=== PATIENT | female | born 1995 ===

== ENCOUNTER 2017-01-22 12:56 | Emergency (ER) | payer OTHER ==
[2017-01-22 13:42] VITALS: BP 115/63; PULSE 76; RESP 16; TEMP 98; O2SAT 99
--- NOTE | 2017-01-22 15:28 | ED PDOC ---
HPI: Abdomen Time Seen by Provider: 01/22/17 14:04 Chief Complaint (Nursing): Abdominal Pain Chief Complaint (Provider): Epigastric abdominal pain, nausea and vomiting x 4 days History Per: Patient History/Exam Limitations: no limitations Onset/Duration Of Symptoms: Days Outside of [place] travel?: No Current Symptoms Are (Timing): Still Present Severity: Moderate Pain Scale Rating Of: 6 Location Of Pain/Discomfort: Epigastric Quality Of Discomfort: Burning Associated Symptoms: Nausea, Vomiting, Loss Of Appetite. denies: Fever, Chills , Diarrhea, Back Pain, Chest Pain, Constipation, Urinary Symptoms Exacerbating Factors: Cough (Pt states she attempted to eat rice and beans last night ) Alleviating Factors: None Additional Complaint(s): Pt reports pain epigastric and states it radiates to the RUQ. Denies similar in the past. Past Medical History Reviewed: Historical Data, Nursing Documentation, Vital Signs Vital Signs: Last Vital Signs Temp 98.0 F 01/22/17 13:39 Pulse 76 01/22/17 13:39 Resp 16 01/22/17 13:39 BP 115/63 01/22/17 13:39 Pulse Ox 99 01/22/17 15:30 - Medical History PMH: No Chronic Diseases - Surgical History Surgical History: No Surg Hx - Family History Family History: States: Unknown Family Hx - Living Arrangements Living Arrangements: With Family - Social History Current smoker - smoking cessation education provided: No Alcohol: None Drugs: Denies - Immunization History Hx Tetanus Toxoid Vaccination: No Hx Influenza Vaccination: No Hx Pneumococcal Vaccination: No - Home Medications Home Medications: Ambulatory Orders Medication Instructions Recorded Ciprofloxacin [Cipro] 1 tab PO BID #14 tab 02/16/16 metroNIDAZOLE 0.75% [Metrogel 1 applic VAG ONCE #7 tube 02/16/16 Cream] Ondansetron [Zofran] 4 mg PO Q6H PRN #10 tab 10/12/16 Famotidine [Pepcid] 20 mg PO BID #28 tab 01/22/17 Ondansetron ODT [Zofran ODT] 4 mg PO QID #20 odt 01/22/17 - Allergies Allergies/Adverse Reactions: Allergies Allergy/AdvReac Type Severity Reaction Status Date / Time No Known Allergies Allergy Verified 10/12/16 16:13 Review of Systems ROS Statement: Except As Marked, All Systems Reviewed And Found Negative Gastrointestinal: Positive for: Nausea, Vomiting, Abdominal Pain. Negative for : Diarrhea Genitourinary Female: Negative for: Dysuria Physical Exam - Reviewed Nursing Documentation Reviewed: Yes Vital Signs Reviewed: Yes - Physical Exam Appears: Positive for: Well, Non-toxic, No Acute Distress Head Exam: Positive for: ATRAUMATIC, NORMAL INSPECTION, NORMOCEPHALIC Skin: Positive for: Normal Color, Warm, DRY Eye Exam: Positive for: Normal appearance ENT: Positive for: Normal ENT Inspection Neck: Positive for: Normal, Painless ROM Cardiovascular/Chest: Positive for: Regular Rate, Rhythm Respiratory: Positive for: CNT, Normal Breath Sounds Gastrointestinal/Abdominal: Positive for: Bowel Sounds, Soft, Tenderness ( Epigastric and RUQ, (-) McMurphy's ) Back: Positive for: Normal Inspection Extremity: Positive for: Normal ROM Neurologic/Psych: Positive for: Alert, Oriented - Laboratory Results Result Diagrams: 01/22/17 16:00 01/22/17 16:00 - ECG O2 Sat by Pulse Oximetry: 99 Pulse Ox Interpretation: Normal Medical Decision Making Medical Decision Making: Labs - Normal US - Normal 1812 - Pt reports feeling better on re-evaluation. Disposition - Clinical Impression Clinical Impression: Gastritis - Patient ED Disposition Is Patient to be Admitted: No Counseled Patient/Family Regarding: Diagnosis, Need For Followup, Rx Given - Disposition Referrals: Former[facility] [Outside] Disposition: Routine/Home Disposition Time: 18:10 Condition: GOOD Prescriptions: Famotidine [Pepcid] 20 mg PO BID #28 tab Ondansetron ODT [Zofran ODT] 4 mg PO QID #20 odt Instructions: Gastritis (ED) Print Language: ITALIAN
--- NOTE | 2017-01-22 16:00 | US ---
HISTORY: epigastric, ruq pain COMPARISON: None. TECHNIQUE: Sonographic evaluation of the right upper quadrant of the abdomen. FINDINGS: LIVER: Measures approximately 14.1 cm cm in length. Smooth contour and normal echogenicity of the liver parenchyma. No mass. No intrahepatic bile duct dilatation. GALLBLADDER: No intraluminal gallbladder calculi. The sonographic Jorgensen's sign COMMON BILE DUCT: Measures 3 mm. No stones. No dilatation. PANCREAS: Unremarkable as visualized. No mass. No ductal dilatation. RIGHT KIDNEY: Measures 9.2 x 2.9 x 3.9 cm in length. Normal echogenicity. No calculus, mass, or hydronephrosis. AORTA: No aneurysmal dilatation. IVC: Unremarkable. OTHER FINDINGS: None . IMPRESSION: Unremarkable right upper quadrant ultrasound.
[2017-01-22 16:20] LABS: BASO # 0.1 K/uL (0.0-0.2); BASO % 1.1 % (0.0-2.0); EOS # 0.3 K/uL (0.0-0.7); EOS % 3.7 % (0.0-4.0); HEMATOCRIT 39.7 % (34.0-47.0); LYMPH # 3.2 K/uL (1.0-4.3); LYMPH % 37.2 % (20.0-40.0); MEAN CELL VOLUME 83.8 fl (81.0-99.0); MEAN CORPUSCULAR HEMOGLOBIN 27.2 pg (27.0-31.0); MEAN CORPUSCULAR HGB CONC 32.5 g/dL (33.0-37.0); MEAN PLATELET VOLUME 9.4 fl (7.2-11.7); MONO # 0.6 K/uL (0.0-0.8); NEUT # 4.4 K/uL (1.8-7.0); NRBC % 0.1 % (0.0-0.0); RED CELL DISTRIBUTION WIDTH 12.9 % (11.5-14.5); WHITE BLOOD COUNT 8.7 K/uL (4.8-10.8)
[2017-01-22 16:38] LABS: ALB/GLOB RATIO 1.4 (1.0-2.1); ALKALINE PHOSPHATASE 85 U/L (38-126); ALT/SGPT 32 U/L (9-52); AST/SGOT 30 U/L (14-36); BILIRUBIN,TOTAL 0.3 mg/dl (0.2-1.3); BLOOD UREA NITROGEN 14 mg/dl (7-17); CALCIUM 9.3 mg/dL (8.4-10.2); CARBON DIOXIDE 24 mmol/L (22-30); CHLORIDE 104 mmol/L (98-107); GFR AFRICAN-AMERICAN > 60; GLUCOSE,RANDOM 79 mg/dL (65-105); LIPASE 92 U/L (23-300); SODIUM 139 mmol/l (132-148); TOTAL PROTEIN 7.7 G/DL (6.3-8.2)
== END 2017-01-22 18:40 | disposition home or self-care (01) ==
LOC: H.ER 12:56
DX: K29.70 Gastritis, unspecified, without bleeding (principal); R11.2 Nausea with vomiting, unspecified

== ENCOUNTER 2017-02-19 11:42 | Emergency (ER) | payer OTHER ==
[2017-02-19 11:51] VITALS: BP 117/72; PULSE 76; RESP 18; TEMP 98.4; O2SAT 99
--- NOTE | 2017-02-19 12:26 | ED PDOC ---
HPI: Skin/Bite Injury Time Seen by Provider: 02/19/17 12:24 Chief Complaint (Nursing): Abnormal Skin Integrity Chief Complaint (Provider): RASH History Per: Patient (21 Y/O FEMALE WITH RASH NOTED GENERALIZED TODAY AM. NO NEW FOODS/DETERGENT/LOTION/MEDICATION. UNSURE OF TRIGGER. ) Past Medical History Reviewed: Historical Data, Nursing Documentation, Vital Signs Vital Signs: Last Vital Signs Temp 98.4 F 02/19/17 11:48 Pulse 76 02/19/17 11:48 Resp 18 02/19/17 11:48 BP 117/72 02/19/17 11:48 Pulse Ox 99 02/19/17 11:48 - Medical History PMH: Asthma - Family History Family History: States: Unknown Family Hx - Immunization History Hx Tetanus Toxoid Vaccination: No Hx Influenza Vaccination: No Hx Pneumococcal Vaccination: No - Home Medications Home Medications: Ambulatory Orders Medication Instructions Recorded Ciprofloxacin [Cipro] 1 tab PO BID #14 tab 02/16/16 metroNIDAZOLE 0.75% [Metrogel 1 applic VAG ONCE #7 tube 02/16/16 Cream] Ondansetron [Zofran] 4 mg PO Q6H PRN #10 tab 10/12/16 Famotidine [Pepcid] 20 mg PO BID #28 tab 01/22/17 Ondansetron ODT [Zofran ODT] 4 mg PO QID #20 odt 01/22/17 DiphenhydrAMINE [Benadryl] 50 mg PO Q6 PRN #24 cap 02/19/17 Epinephrine [Epipen] 0.3 mg SC ONCE PRN #2 auto.injct 02/19/17 Famotidine [Pepcid] 20 mg PO BID #10 tab 02/19/17 predniSONE [predniSONE Tab] 3 tab PO DAILY #12 tab 02/19/17 - Allergies Allergies/Adverse Reactions: Allergies Allergy/AdvReac Type Severity Reaction Status Date / Time pumpkin Allergy RASH Verified 02/19/17 11:48 Review of Systems ROS Statement: Except As Marked, All Systems Reviewed And Found Negative Physical Exam - Reviewed Nursing Documentation Reviewed: Yes Vital Signs Reviewed: Yes - Physical Exam Appears: Positive for: Well, Non-toxic, No Acute Distress Head Exam: Positive for: ATRAUMATIC, NORMAL INSPECTION, NORMOCEPHALIC Skin: Positive for: Normal Color, Warm, Rash (URTICARIA NOTED ALONG TRUNK AND ARMS) Eye Exam: Positive for: EOMI, Normal appearance, PERRL ENT: Positive for: Normal ENT Inspection Neck: Positive for: Normal, Painless ROM Cardiovascular/Chest: Positive for: Regular Rate, Rhythm Respiratory: Positive for: CNT, Normal Breath Sounds Gastrointestinal/Abdominal: Positive for: Normal Exam, Bowel Sounds, Soft Back: Positive for: Normal Inspection Extremity: Positive for: Normal ROM Neurologic/Psych: Positive for: Alert, Oriented - ECG O2 Sat by Pulse Oximetry: 99 - Progress ED Course And Treament: pREDNISONE 60 MG X 1 DOSE Disposition - Clinical Impression Clinical Impression: Urticaria - Patient ED Disposition Is Patient to be Admitted: No - Disposition Referrals: Former[facility] [Outside] Disposition: Routine/Home Disposition Time: 12:26 Condition: FAIR Prescriptions: DiphenhydrAMINE [Benadryl] 50 mg PO Q6 PRN #24 cap PRN Reason: Itching / Pruritus Epinephrine [Epipen] 0.3 mg SC ONCE PRN #2 auto.injct PRN Reason: Anaphylaxis Famotidine [Pepcid] 20 mg PO BID #10 tab predniSONE [predniSONE Tab] 3 tab PO DAILY #12 tab Instructions: Urticaria (ED) Print Language: IRISH
== END 2017-02-19 13:11 | disposition home or self-care (01) ==
LOC: H.ER 11:42
DX: L50.9 Urticaria, unspecified (principal)

== ENCOUNTER 2017-05-29 13:26 | Emergency (ER) | payer OTHER ==
[2017-05-29 13:40] VITALS: BP 99/66; PULSE 80; RESP 16; TEMP 98.7; O2SAT 99
--- NOTE | 2017-05-29 14:14 | ED PDOC ---
Lower Extremity Pain/Injury Time Seen by Provider: 05/29/17 13:39 Chief Complaint (Nursing): Lower Extremity Problem/Injury Chief Complaint (Provider): Lower Extremity Problem/Injury History Per: Patient History/Exam Limitations: no limitations Onset/Duration Of Symptoms: Days (x4) Current Symptoms Are (Timing): Still Present Additional Complaint(s): Rl Gibson is a 21 year old female with previous medical history of asthma , who presents to the emergency department with a complaint of left foot pain associated with itchiness ongoing for 4 days. Mother applied unknown, red cream to patient's left foot prior to arrival. Patient also stated that she wears sneakers for work and is on her feet most of the time. PMD: none provided Past Medical History Reviewed: Historical Data, Nursing Documentation, Vital Signs Vital Signs: Last Vital Signs Temp 98.7 F 05/29/17 13:37 Pulse 80 05/29/17 13:37 Resp 16 05/29/17 13:37 BP 99/66 L 05/29/17 13:37 Pulse Ox 99 05/29/17 13:37 - Medical History PMH: Asthma - Surgical History Surgical History: No Surg Hx - Family History Family History: States: Unknown Family Hx - Social History Current smoker - smoking cessation education provided: No Ex-Smoker (has not smoked in the last 12 months): No Alcohol: None Drugs: Denies - Immunization History Hx Tetanus Toxoid Vaccination: No Hx Influenza Vaccination: No Hx Pneumococcal Vaccination: No - Home Medications Home Medications: Ambulatory Orders Medication Instructions Recorded Ciprofloxacin [Cipro] 1 tab PO BID #14 tab 02/16/16 metroNIDAZOLE 0.75% [Metrogel 1 applic VAG ONCE #7 tube 02/16/16 Cream] Ondansetron [Zofran] 4 mg PO Q6H PRN #10 tab 10/12/16 Famotidine [Pepcid] 20 mg PO BID #28 tab 01/22/17 Ondansetron ODT [Zofran ODT] 4 mg PO QID #20 odt 01/22/17 DiphenhydrAMINE [Benadryl] 50 mg PO Q6 PRN #24 cap 02/19/17 Epinephrine [Epipen] 0.3 mg SC ONCE PRN #2 auto.injct 02/19/17 Famotidine [Pepcid] 20 mg PO BID #10 tab 02/19/17 predniSONE [predniSONE Tab] 3 tab PO DAILY #12 tab 02/19/17 Miconazole 1 gm MC BID 14 Days #1 powder 05/29/17 - Allergies Allergies/Adverse Reactions: Allergies Allergy/AdvReac Type Severity Reaction Status Date / Time pumpkin Allergy RASH Verified 02/19/17 11:48 Review of Systems ROS Statement: Except As Marked, All Systems Reviewed And Found Negative Musculoskeletal: Positive for: Foot Pain (left), Other (left foot itching) Physical Exam - Reviewed Nursing Documentation Reviewed: Yes Vital Signs Reviewed: Yes - Physical Exam Appears: Positive for: Well, Non-toxic, No Acute Distress Head Exam: Positive for: ATRAUMATIC, NORMAL INSPECTION, NORMOCEPHALIC Extremity: Positive for: Normal ROM, Other (dry, scaley and erythematous patches on web-space of 3rd and 4th digits of left foot consisted with tinea pedis). Negative for: Tenderness, Pedal Edema Neurologic/Psych: Positive for: Alert (x3), Oriented, Gait (steady) - ECG O2 Sat by Pulse Oximetry: 99 (RA) Pulse Ox Interpretation: Normal Medical Decision Making Medical Decision Making: Initial Impression: Tinea Pedis Initial Plan: * Treatment for tinea pedis * Recommends open-toe shoes Scribe Attestation: Documented by Carlene Cowan, acting as a scribe for Virgen Antony Provider Scribe Attestation: All medical record entries made by the Scribe were at my direction and personally dictated by me. I have reviewed the chart and agree that the record accurately reflects my personal performance of the history, physical exam, medical decision making, and the department course for this patient. I have also personally directed, reviewed, and agree with the discharge instructions and disposition. Disposition - Clinical Impression Clinical Impression: Tinea pedis - Patient ED Disposition Is Patient to be Admitted: No Counseled Patient/Family Regarding: Studies Performed, Diagnosis, Rx Given - Disposition Disposition: Routine/Home Disposition Time: 14:13 Condition: STABLE Prescriptions: Miconazole 1 gm MC BID 14 Days #1 powder Instructions: Tinea Pedis (ED) Forms: [facility] (Kazakh) Print Language: NICARAGU[place]
== END 2017-05-29 14:17 | disposition home or self-care (01) ==
LOC: H.ER 13:26
DX: B35.3 Tinea pedis (principal)